=== PATIENT | female | born 1995 | race Caucasian/White ===

== ENCOUNTER 2022-11-01 12:10 | Outpatient (CLI) | payer MEDICAID, SELFPAY ==
[2022-11-01 12:30] VITALS: BP 130/78; PULSE 100; TEMP 36.8; O2SAT 100
[2022-11-01 12:36] VITALS: BMI 32.5
[2022-11-01] MEDS: Lactated Ringers 500 ML 999 ML IV (13:21)
[2022-11-01] MEDS: Acetaminophen 500 MG Tablet 1000 MG PO (13:24)
[2022-11-01 14:02] LABS: Bacteria 0 SEEN /hpf (None Seen); Mucous, Urine 0 SEEN /hpf (<or=2+); Red Blood Cells-Urine 0 SEEN /hpf (0-5)
[2022-11-01 14:13] LABS: Color, Urine Yellow (Yellow); Glucose, Dipstick Normal (Normal); Ketone-Dipstick Negative (Negative); Leukocyte Esterase-Dipstick 100 /ul (Negative); Nitrite-Dipstick Negative (Negative); Occult Blood-Urine Negative /ul (Negative); Protein-Dipstick Negative (Negative); Urine Bilirubin Dipstick Negative (Negative); Urine Clarity Sl. Cloudy (Clear); Urine Urobilinogen 1 mg/dl (Normal)
[2022-11-01 14:24] LABS: Squamous Epithelial Cells - UA 0-5 SEEN /hpf (5-10); White Blood Cells 10-25 SEEN /hpf (0-5)
[2022-11-01 14:40] VITALS: BP 121/74; PULSE 93
--- NOTE | 2022-11-01 17:48 | OB.TRI.HP_ITS ---
HPI - General HPI Narrative QUYNH ALMONTE, is a 26 F @ 35.4 weeks gestation who presents to triage with contractions that started last night. She has headache and concerned because she has a history of preeclampsia and GDM with previous . This has been uneventful. Maternal Data Information CAROLYN Calculator Estimated Delivery Date Method Current WG Current Estimate 12/02/22 Manual 35w 4d PFSH PFSH Home Medications aspirin 81 mg chewable tablet (Aspirin Childrens) 1 tab PO DAILY 11/01/22 [H istory Last Taken 11/01/22 08:00] famotidine 20 mg tablet (Acid-Pep) 20 mg PO DAILY 11/01/22 [History Last Taken 11/01/22 08:00] ferrous sulfate 27 mg iron tablet 27 mg PO DAILY 11/01/22 [History Last Taken 11/01/22 08:00] magnesium 250 mg tablet 250 mg PO DAILY 11/01/22 [History Last Taken 11/01/22 08:00] ondansetron 8 mg disintegrating tablet 8 mg PO Q12H 11/01/22 [History Last Taken Unknown] Allergy/AdvReac Type Severity Reaction Status Date / Time No Known Allergies Allergy Verified 11/01/22 12:37 Social History Smoking Status: Never smoker ROS Eyes Eyes: Denies blurry vision Cardiovascular Cardiovascular: Reports none; Denies chest pain at rest, chest pain with activity or dizziness Respiratory/Chest Respiratory/Chest: Denies cough or dyspnea Gastrointestinal Gastrointestinal: Reports none and other; Denies diarrhea or vomiting Genitourinary Genitourinary: Denies dysuria Musculoskeletal Musculoskeletal: Reports none Integumentary Integumentary: Reports none; Denies rash Neurologic Neurologic: Denies other visual disturbances Psychiatric Psychiatric: Reports none Physical Exam Const alert and no apparent distress General Appearance: cooperative Orientation / Consciousness: awake Exam Limitations: no limitations HEENT normocephalic Eyes General Eye: normal appearance of both eyes Neck full ROM Chest inspection of chest normal Resp normal respiratory effort and normal air movement Effort and Inspection: symmetric chest movement Auscultation: clear to auscultation bilaterally Cardio regular rate GI soft to palpation, non-tender and non-distended Inspection: and other Back/Spine normal ROM Extremity full ROM, normal capillary refill and no calf tenderness Skin no rashes or lesions noted Neuro oriented x3 and CN's II-XII intact bilaterally Psych mental status grossly normal NST FHR Rate Baby A Baseline: 125 Variability:: Moderate Accelerations:: 15 x 15 Decelerations:: None NST Reactive:: Yes FHR Category:: Category I Uterine Activity:: irregular- palpate mild Assessment & Plan (1) 35 weeks gestation of : (2) contractions: (3) Headache: PLAN: Plan Tylenol 1000 mg PO X 1 now Start IV and give 500 cc Bolus LR UA - negative Blood pressure stable CE - closed/thick/high= unchanged after extended monitoring NST reactive D/C home with follow up in office this week Dr. Browning notified
== END 2022-11-01 15:19 | disposition home or self-care (01) ==
LOC: WPOUT 12:27 → WP 12:27
PROVIDERS: Referring Provider Advanced Practice Midwife; Visit Provider Advanced Practice Midwife
DX: O26.893 Other specified pregnancy related conditions, third trimester (principal); R51.9 Headache, unspecified; Z3A.35 35 weeks gestation of pregnancy
CPT/HCPCS: 96360; 59025; 59050; 81001; 99221; J7120; G0378

== ENCOUNTER 2022-11-04 11:40 | Outpatient (CLI) | payer MEDICAID, SELFPAY ==
[2022-11-04] VITALS (7 sets, daily range): BP systolic 124–138; BP diastolic 79–88; PULSE 101–112; TEMP 35.9–37.2; O2SAT 100; BMI 32.1
[2022-11-04 12:35] LABS: ROM Internal Control Test YES-OK TO RESULT pt. (Internal QC); ROM Patient Test Negative (Negative); Record Kit Lot#, ROM+ K1374
--- NOTE | 2022-11-04 12:47 | OB.TRI.NOTE ---
HPI - General HPI Narrative QUYNH ALMONTE, is a 26 F 36 week gestation, who presents with contractions and lower pelvic pressure. She reports having stomach issues/diarrhea the past couple of days. She has positive movement and denies any vaginal bleeding. Maternal Data Information CAROLYN Calculator Estimated Delivery Date Method Current WG Current Estimate 12/02/22 Manual 36w 0d PFSH PFSH Home Medications aspirin 81 mg chewable tablet (Aspirin Childrens) 1 tab PO DAILY 11/01/22 [History Last Taken 11/03/22 08:00 1 TAB] famotidine 20 mg tablet (Acid-Pep) 20 mg PO DAILY 11/01/22 [History Last Taken 11/03/22 08:00 20 mg] ferrous sulfate 27 mg iron tablet 27 mg PO DAILY 11/01/22 [History Last Taken 11/03/22 08:00 65 mg] magnesium 250 mg tablet 250 mg PO DAILY 11/01/22 [History Last Taken 11/03/22 08:00 500 mg] ondansetron 8 mg disintegrating tablet 8 mg PO Q12H 11/01/22 [History Last Taken Unknown] Allergy/AdvReac Type Severity Reaction Status Date / Time No Known Allergies Allergy Verified 11/04/22 12:06 Social History Smoking Status: Never smoker ROS Eyes Eyes: Denies blurry vision Cardiovascular Cardiovascular: Reports none; Denies chest pain at rest, chest pain with activity or dizziness Respiratory/Chest Respiratory/Chest: Denies cough or dyspnea Gastrointestinal Gastrointestinal: Reports none and other; Denies diarrhea or vomiting Genitourinary Genitourinary: Denies dysuria Musculoskeletal Musculoskeletal: Reports none Integumentary Integumentary: Reports none; Denies rash Neurologic Neurologic: Denies dizziness, headache(s) or other visual disturbances Psychiatric Psychiatric: Reports none Physical Exam Const alert and no apparent distress General Appearance: cooperative Orientation / Consciousness: awake Exam Limitations: no limitations HEENT normocephalic Eyes General Eye: normal appearance of both eyes Neck full ROM Chest inspection of chest normal Resp normal respiratory effort and normal air movement Effort and Inspection: symmetric chest movement Auscultation: clear to auscultation bilaterally Cardio regular rate GI soft to palpation, non-tender and non-distended Inspection: and other Back/Spine normal ROM Extremity full ROM, normal capillary refill and no calf tenderness Skin no rashes or lesions noted Neuro oriented x3 and CN's II-XII intact bilaterally Psych mental status grossly normal NST FHR Rate Baby A Baseline: 130 Variability:: Moderate Accelerations:: 15 x 15 Decelerations:: None NST Reactive:: Yes FHR Category:: Category I Uterine Activity:: irritability Assessment & Plan (1) Pelvic pressure in : (2) 36 weeks gestation of : (3) Diarrhea: (4) Dehydration during : (5) UTI (urinary tract infection), affecting care of mother, antepartum: PLAN: Plan Start IV - Give 1000 cc bolus LR and then run at 250 cc/hr CBC, CMP Oral hydration Zofran 4 mg IV PRN for nausea UA- reflects dehydration and possible infection- will send culture Ancef 2 gm IV x 1 now Macrobid 100 mg PO BID x 7 days CE- 2/50/-3 - unchanged after extended monitoring Patient requesting membrane sweep today - reviewed not appropriate until after 38 weeks gestation D/C home with follow up in office this week Dr. Gil involved with plan of care
[2022-11-04] MEDS: Lactated Ringers 1,000 ML 999 ML IV (13:10)
[2022-11-04 13:15] LABS: Bacteria 0 SEEN /hpf (None Seen); Mucous, Urine 0 SEEN /hpf (<or=2+); Red Blood Cells-Urine 0 SEEN /hpf (0-5)
[2022-11-04 13:22] LABS: Color, Urine Yellow (Yellow); Glucose, Dipstick 100 mg/dl (Normal); Ketone-Dipstick 5 mg/dl (Negative); Leukocyte Esterase-Dipstick 500 /ul (Negative); Nitrite-Dipstick Negative (Negative); Occult Blood-Urine 10 /ul (Negative); Protein-Dipstick 15 mg/dl (Negative); Specific Gravity, Urine 1.025 (1.002-1.030); Urine Bilirubin Dipstick Negative (Negative); Urine Clarity Sl. Cloudy (Clear); Urine Urobilinogen Normal (Normal)
[2022-11-04 13:23] LABS: Absolute Lymphocyte Count 1.59 X10^3/uL (0.83-4.51); Basophil# 0.02 X10^3/uL; Basophil% 0.2 % (0-1); Eosinophil# 0.02 X10^3/uL; Eosinophils% 0.2 % (0-5); Hematocrit 33.5 % (37-47); Hemoglobin 10.2 g/dL (12.0-15.0); Lymphocyte # 1.59 X10^3/ul (0.83-4.51); Lymphocyte % 19.1 % (19-41); Mean Corp Hgb Conc 30.4 g/dL (32-36); Mean Corpuscular Hgb 27.8 pg (27.0-32.0); Mean Corpuscular Volume 91.3 fL (81-99); Mean Platelet Vol. 10.6 fl (6.2-12.0); Monocyte# 0.64 X10^3/uL; Monocyte% 7.7 % (0-10); NRBC Flagged by Analyzer 0 % (0-5); Neutrophil # 6.01 X10^3/uL (2.7-7.7); Neutrophil % 72.4 % (47-70); Platelet Count 237 K/mm3 (150-450); RBC Distribution Width CV 14.4 % (11.6-14.6); RBC Distribution Width SD 48.5 fl (35.1-43.9); Red Blood Count 3.67 M/mm3 (4.2-5.4); White Blood Count 8.3 K/mm3 (4.4-11.0)
[2022-11-04 13:31] LABS: Squamous Epithelial Cells - UA 0-5 SEEN /hpf (5-10); White Blood Cells 5-10 SEEN /hpf (0-5)
[2022-11-04 13:43] LABS: ALB/GLOB Ratio 0.6 RATIO (0.9-2.4); AST(SGOT) 17 U/L (15-37); Alanine Aminotransfer ALT/SGPT 20 U/L (13-56); Albumin, Serum 2.4 g/dL (3.2-5.0); Alkaline Phosphatase 142 U/L (45-117); Anion Gap 8 (5-15); BUN 12 mg/dL (7-18); BUN/Creat Ratio 15.4 RATIO (10-20); Chloride 109 mmol/L (98-107); Creatinine, Serum 0.78 mg/dL (0.55-1.02); EST Glomerular Filtration Rate 94 mL/min (>60); Est Glom Filt Rate - Afr Amer 113 mL/min (>60); Estimated Creatinine Clearance 105.35 ml/min; Globulin 4.1 g/dL (2.2-4.2); Glucose 136 mg/dL (74-106); Potassium 3.5 mmol/L (3.5-5.1); Protein, Total 6.5 g/dL (6.4-8.2); Sodium Level 137 mmol/L (136-145)
[2022-11-04] MEDS: Lactated Ringers 1,000 ML 250 ML IV (14:56)
[2022-11-04] MEDS: Cefazolin 2 GM in 0.9% Normal Saline (100mL Bag) 100 ML IV (15:03)
[2022-11-04] MEDS: Ondansetron 4 MG/2 ML Vial IV (16:40)
--- NOTE | 2022-11-04 18:18 | DCINST_ITS ---
Discharge Instructions Follow Up Care Test Results: Test results from this visit will be discussed in further detail at your follow- up appointment, if applicable. Discharge Plan Admission Reason For Visit: R/O LABOR Attending Provider: Laverne Gary Primary Care Provider: Nemo Bernabe Primary Discharge Date/Time: 11/04/22 17:15 Instructions Patient Instructions: OB Triage: Return to Hospital or Notify Physician if you Experience: Discharge Orders/Prescriptions Prescriptions: New nitrofurantoin monohyd/m-cryst [Macrobid] 100 mg capsule 100 mg PO BID Qty: 14 0RF Rx Instructions: Take medication with food to help with GI upset Finish all of medication No Action famotidine [Acid-Pep] 20 mg tablet 20 mg PO DAILY ondansetron 8 mg tablet,disintegrating 8 mg PO Q12H Patient Comments: prn ferrous sulfate 27 mg iron tablet 27 mg PO DAILY Patient Comments: pt states 65 mg aspirin [Aspirin Childrens] 81 mg tablet,chewable 1 tab PO DAILY magnesium 250 mg tablet 250 mg PO DAILY Rx Instructions: pt takes 2 Referrals / Follow Up: Care Physician,No Primary [Primary Care Provider] - Disposition Patient Disposition: Home, Self Care
--- NOTE | 2022-11-05 08:14 | PCM.PN.BLA ---
Progress Note Patient's urine positive for Chlamydia. Patient notified and aware partner needs treatment as well. Rx sent for Azithromycin 1 GM PO x 1 now. Will notify Health Department. Assessment & Plan Assessment/Plan (1) Chlamydia infection affecting : (2) 36 weeks gestation of : PLAN: Plan RX sent for Azithromycin 1 GM PO x 1 now Partner (s) will need notified and treated Patient voices understanding Will need JOSE
== END 2022-11-04 17:15 | disposition home or self-care (01) ==
LOC: WPOUT 11:50 → WP 11:51
PROVIDERS: Referring Provider Advanced Practice Midwife; Visit Provider Advanced Practice Midwife
DX: O98.313 Other infections with a predominantly sexual mode of transmission complicating pregnancy, third trimester (principal); A56.00 Chlamydial infection of lower genitourinary tract, unspecified; O99.283 Endocrine, nutritional and metabolic diseases complicating pregnancy, third trimester; E86.0 Dehydration; R19.7 Diarrhea, unspecified; Z3A.36 36 weeks gestation of pregnancy; R10.2 Pelvic and perineal pain
CPT/HCPCS: 96365; 96361; 96375; 59025; 59050; 80053; 81001; 84112; 85025; 87086; 87088; 87491; 87591; J7120; J2405

== ENCOUNTER 2022-11-12 03:10 | Inpatient (IN) | payer MEDICAID, SELFPAY ==
[2022-11-12] VITALS (52 sets, daily range): BP systolic 87–152; BP diastolic 43–80; PULSE 80–163; RESP 16–18; TEMP 36.4–37.3; O2SAT 82–100; BMI 32.4
[2022-11-12 01:31] LABS: ROM Internal Control Test YES-OK TO RESULT pt. (Internal QC); ROM Patient Test Negative (Negative); Record Kit Lot#, ROM+ K1409
[2022-11-12] MEDS: LACTATED RINGERS 500 ML 999 ML IV ×3 (01:45→05:27)
[2022-11-12] MEDS: Penicillin G Pot 5,000,000 UNITS in 0.9% Normal Saline (100mL MB+) 100 ML 150 UNITS IV (01:54)
[2022-11-12 02:10] LABS: Absolute Neutrophil Count 6.8 X10^3/uL (2.0-7.7); Basophil# 0.03 X10^3/uL; Basophil% 0.3 % (0-1); Eosinophil# 0.07 X10^3/uL; Eosinophils% 0.7 % (0-5); Hematocrit 32.2 % (37-47); Hemoglobin 10.2 g/dL (12.0-15.0); Lymphocyte % 26.3 % (19-41); Mean Corp Hgb Conc 31.7 g/dL (32-36); Mean Corpuscular Hgb 28.6 pg (27.0-32.0); Mean Corpuscular Volume 90.2 fL (81-99); Mean Platelet Vol. 10.9 fl (6.2-12.0); Monocyte# 0.83 X10^3/uL; Monocyte% 7.8 % (0-10); NRBC Flagged by Analyzer 0 % (0-5); Neutrophil # 6.83 X10^3/uL (2.7-7.7); Neutrophil % 64.1 % (47-70); Platelet Count 258 K/mm3 (150-450); RBC Distribution Width CV 15.1 % (11.6-14.6); RBC Distribution Width SD 48.5 fl (35.1-43.9); Red Blood Count 3.57 M/mm3 (4.2-5.4); White Blood Count 10.6 K/mm3 (4.4-11.0)
[2022-11-12] MEDS: Lactated Ringers 1,000 ML 200 ML IV ×2 (02:17→08:52)
[2022-11-12 03:14] LABS: Syphilis Antibodies Non-reactive
[2022-11-12 03:14] LABS: Hepatitis C Antibody Non-Reactive (Nonreactive)
[2022-11-12] MEDS: fentaNYL-bupivacaine (epidural) 100 ML BAG EPIDURAL ×2 (03:55→08:20)
[2022-11-12 04:40] LABS: Amphetamine Urine VISTA NEGATIVE (<1000 ng/mL); Barbiturate Urine VISTA NEGATIVE (< 200 ng/mL); Benzodiazepine Urine VISTA NEGATIVE (< 200 ng/mL); Cocaine Urine VISTA NEGATIVE (< 300 ng/mL); Ecstacy Urine VISTA NEGATIVE (< 500 ng/mL); Methadone Urine VISTA NEGATIVE (< 300 ng/mL); PCP Urine VISTA NEGATIVE (< 25 ng/mL); THC Urine VISTA POSITIVE (< 50 ng/mL); Vista UDS pH Range 6
[2022-11-12] MEDS: Azithromycin 500 MG in Dextrose 5%-Water (250mL Bag) 250 ML 250 MG IV (05:46)
[2022-11-12] MEDS: Ondansetron 4 MG/2 ML Vial IV (05:55)
[2022-11-12] MEDS: proCHLORPERazine 10 MG/2 ML Vial IV (06:35)
[2022-11-12] MEDS: Mag Hydrox/Al Hydrox/Simeth 30 ML UDC PO (06:53)
[2022-11-12] MEDS: Penicillin G 3,000,000 Units 50 ML 100 UNITS IV (06:56)
[2022-11-12] MEDS: Oxytocin 15 Units/NS 250ml 15 UNITS/250 ML IV.SOLN 2 UNITS IV (08:41)
--- NOTE | 2022-11-12 09:52 | PCM.HP.OB ---
HPI - General General Date of Admission: 11/12/22 Date of Service: 11/12/22 Chief Complaint: contractions [facility] Narrative QUYNH ALMONTE, is a 26-year-old female 4 para 2-0-1-2 who presents at 37 weeks gestation complaining contractions. No gross vaginal bleeding or leaking of fluid. She has had good movement. has been complicated to date by nausea and vomiting of and chlamydia. She was treated for her chlamydia recently. She has a history preeclampsia and depression and previous pregnancies. She has a history of gestational diabetes with a previous . She is also had some antepartum anemia. Maternal Data Information CAROLYN Calculator Estimated Delivery Date Method Current WG Current Estimate 12/02/22 Manual 37w 1d Gestational age: 37 03/04 [facility] Medical History (Updated 11/12/22 @ 09:[address] Moni Browning MD) Anxiety Chlamydia infection affecting Depression Gestational diabetes Gestational HTN depression Pre-eclampsia Home Medications aspirin 81 mg chewable tablet (Aspirin Childrens) 1 tab PO DAILY 11/01/22 [History Last Taken 11/03/22 08:00 1 TAB] famotidine 20 mg tablet (Acid-Pep) 20 mg PO DAILY 11/01/22 [History Last Taken 11/03/22 08:00 20 mg] ferrous sulfate 27 mg iron tablet 27 mg PO DAILY 11/01/22 [History Last Taken 11/03/22 08:00 65 mg] magnesium 250 mg tablet 250 mg PO DAILY 11/01/22 [History Last Taken 11/03/22 08:00 500 mg] ondansetron 8 mg disintegrating tablet 8 mg PO Q12H 11/01/22 [History Last Taken Unknown] nitrofurantoin monohydrate/macrocrystals 100 mg capsule (Macrobid) 100 mg PO BID #14 CAPSULES 11/04/22 [Rx Last Taken Unknown] azithromycin 500 mg tablet 500 mg PO DAILY #2 tabs 11/05/22 [Rx Last Taken Unknown] Allergy/AdvReac Type Severity Reaction Status Date / Time No Known Allergies Allergy Verified 11/12/22 00:51 Surgical History (Updated 11/12/22 @ 01:49 by Azalea Brown) History of cholecystectomy [place] teeth removed Social History Smoking Status: Former smoker History Elective abortions Hx Para 2 Spontaneous abortions Hx # Term Pregnancies Ectopic pregnancies Hx # Pregnancies Multiple births # of living children ROS Constitutional Constitutional: Denies fatigue, fever(s) or malaise Eyes Eyes: Denies change in vision ENT HEENT: Denies dizziness or headache(s) Cardiovascular Cardiovascular: Denies chest pain, dyspnea or lightheadedness Respiratory/Chest Respiratory/Chest: Denies cough or dyspnea Gastrointestinal Gastrointestinal: Denies change in bowel habits Genitourinary Genitourinary: Denies burning urination or genital lesions Integumentary Integumentary: Denies rash Neurologic Neurologic: Denies confusion, dizziness, headache(s), numbness or weakness Vital Signs Vital Signs Vital Signs: 11/12/22 02:53 11/12/22 02:53 11/12/22 02:53 Temperature Temperature Source Pulse Rate 89 Blood Pressure 117/71 BP Systolic 117 BP Diastolic 71 Pulse Ox 99 11/12/22 02:53 11/12/22 02:53 11/12/22 03:34 Temperature 98.7 F Temperature Source Temporal Pulse Rate 109 H Blood Pressure BP Systolic BP Diastolic Pulse Ox 11/12/22 03:34 11/12/22 03:39 11/12/22 03:39 Temperature Temperature Source Pulse Rate 107 H Blood Pressure BP Systolic BP Diastolic Pulse Ox 93 100 11/12/22 03:40 11/12/22 03:40 11/12/22 03:41 Temperature Temperature Source Pulse Rate 91 Blood Pressure 152/77 H BP Systolic 152 BP Diastolic 77 Pulse Ox 87 11/12/22 03:41 11/12/22 03:41 11/12/22 03:44 Temperature Temperature Source Pulse Rate 89 101 H Blood Pressure BP Systolic BP Diastolic Pulse Ox 100 11/12/22 03:44 11/12/22 03:47 11/12/22 03:47 Temperature Temperature Source Pulse Rate 90 Blood Pressure 132/80 H BP Systolic 132 BP Diastolic 80 Pulse Ox 100 11/12/22 03:49 11/12/22 03:49 11/12/22 03:52 Temperature Temperature Source Pulse Rate 88 Blood Pressure 100/72 BP Systolic 100 BP Diastolic 72 Pulse Ox 99 11/12/22 03:52 11/12/22 03:54 11/12/22 03:54 Temperature Temperature Source Pulse Rate 105 H 105 H Blood Pressure BP Systolic BP Diastolic Pulse Ox 99 11/12/22 03:58 11/12/22 03:58 11/12/22 03:59 Temperature Temperature Source Pulse Rate 100 105 H Blood Pressure 110/58 L BP Systolic 110 BP Diastolic 58 Pulse Ox 11/12/22 03:59 11/12/22 04:02 11/12/22 04:02 Temperature Temperature Source Pulse Rate 100 Blood Pressure 111/55 L BP Systolic 111 BP Diastolic 55 Pulse Ox 98 11/12/22 04:04 11/12/22 04:04 11/12/22 04:06 Temperature Temperature Source Pulse Rate 104 H Blood Pressure 102/52 L BP Systolic 102 BP Diastolic 52 Pulse Ox 99 11/12/22 04:06 11/12/22 04:09 11/12/22 04:09 Temperature Temperature Source Pulse Rate 97 98 Blood Pressure BP Systolic BP Diastolic Pulse Ox 100 11/12/22 04:11 11/12/22 04:11 11/12/22 04:14 Temperature Temperature Source Pulse Rate 100 96 Blood Pressure 106/59 L BP Systolic 106 BP Diastolic 59 Pulse Ox 11/12/22 04:14 11/12/22 04:17 11/12/22 04:17 Temperature Temperature Source Pulse Rate 96 Blood Pressure 113/60 BP Systolic 113 BP Diastolic 60 Pulse Ox 99 11/12/22 04:17 11/12/22 04:17 11/12/22 04:51 Temperature 98.3 F Temperature Source Temporal Temporal Pulse Rate Blood Pressure BP Systolic BP Diastolic Pulse Ox 11/12/22 04:51 11/12/22 04:52 11/12/22 04:52 Temperature Temperature Source Pulse Rate 110 H Blood Pressure 105/57 L BP Systolic 105 BP Diastolic 57 Pulse Ox 99 11/12/22 04:51 11/12/22 05:16 11/12/22 05:16 Temperature 98.3 F Temperature Source Pulse Rate 84 Blood Pressure 109/57 L BP Systolic 109 BP Diastolic 57 Pulse Ox 11/12/22 01:04 11/12/22 01:05 11/12/22 01:05 Temperature Temperature Source Temporal Pulse Rate 88 Blood Pressure 107/59 L BP Systolic 107 BP Diastolic 59 Pulse Ox 11/12/22 01:04 11/12/22 01:04 11/12/22 05:35 Temperature 98.7 F Temperature Source Pulse Rate 110 H Blood Pressure BP Systolic BP Diastolic Pulse Ox 98 11/12/22 05:35 11/12/22 05:40 11/12/22 05:40 Temperature Temperature Source Pulse Rate 104 H Blood Pressure BP Systolic BP Diastolic Pulse Ox 100 100 11/12/22 05:45 11/12/22 05:45 11/12/22 05:50 Temperature Temperature Source Pulse Rate 104 H 111 H Blood Pressure BP Systolic BP Diastolic Pulse Ox 100 11/12/22 05:50 11/12/22 05:55 11/12/22 05:55 Temperature Temperature Source Pulse Rate 139 H Blood Pressure BP Systolic BP Diastolic Pulse Ox 100 100 11/12/22 06:16 11/12/22 06:17 11/12/22 06:17 Temperature Temperature Source Temporal Pulse Rate 96 Blood Pressure 98/55 L BP Systolic 98 BP Diastolic 55 Pulse Ox 11/12/22 06:16 11/12/22 06:17 11/12/22 06:17 Temperature 97.6 F L Temperature Source Pulse Rate 93 Blood Pressure BP Systolic BP Diastolic Pulse Ox 100 11/12/22 07:24 11/12/22 07:25 11/12/22 07:25 Temperature Temperature Source Pulse Rate 97 Blood Pressure 102/56 L BP Systolic 102 BP Diastolic 56 Pulse Ox 98 11/12/22 08:38 11/12/22 08:38 11/12/22 08:38 Temperature Temperature Source Pulse Rate 100 105 H Blood Pressure 107/54 L BP Systolic 107 BP Diastolic 54 Pulse Ox 11/12/22 08:38 11/12/22 08:43 11/12/22 08:43 Temperature Temperature Source Pulse Rate 90 Blood Pressure BP Systolic BP Diastolic Pulse Ox 98 98 11/12/22 08:48 11/12/22 08:48 11/12/22 09:08 Temperature Temperature Source Pulse Rate 103 H 163 H Blood Pressure BP Systolic BP Diastolic Pulse Ox 98 11/12/22 09:08 11/12/22 09:08 11/12/22 09:08 Temperature Temperature Source Pulse Rate 143 H Blood Pressure BP Systolic BP Diastolic Pulse Ox 83 82 11/12/22 09:24 11/12/22 09:24 Temperature Temperature Source Pulse Rate 96 Blood Pressure 119/70 BP Systolic 119 BP Diastolic 70 Pulse Ox Weight Weight: 95.345 kg Body Mass Index (BMI) 32.4 Physical Exam Const alert and no apparent distress General Appearance: cooperative HEENT normocephalic Resp normal respiratory effort Cardio regular rate GI soft to palpation GI Narrative: gravid, nontender, appropriate for gestational age Extremity no calf tenderness General Extremity: edema Skin no wounds Rashes: No rashes noted Psych activity/motor behavior normal Labs Labs Labs: Blood Type A NEGATIVE Antibody Screen NEGATIVE Hct 32.2 % (37-47) L Hgb 10.2 g/dL (12.0-15.0) L Obstetrics US Syphilis Total Ab Non-reactive Assessment & Plan (1) 37 weeks gestation of : PLAN: 26-year-old female multigravida in spontaneous labor. Estimated weight is less than 4000 g clinically and pelvis clinically adequate to expect vaginal delivery. May have routine pain management medications and measures during labor as desired. Group B strep is negative. Patient tested positive for chlamydia recently and was treated. Test today is still positive, may be false positive due to recent treatment however, will give 1 dose of IV Zithromax to cover this. Expectant management for vaginal delivery (2) Spontaneous onset of labor:
--- NOTE | 2022-11-12 11:04 | EX.PCM.OBRPT ---
Maternal Data Information CAROLYN Calculator Estimated Delivery Date Method Current WG Current Estimate 12/02/22 Manual 37w 1d Final CAROLYN: 12/02/22 Gestational age: 37 1/7 Vaginal Delivery Maternal Presentation Maternal Presentation: Active Labor Operative Information Date of Procedure: 11/12/22 Pre-Operative Diagnosis: labor Post-Operative Diagnosis: same Surgery / Procedure Performed: Forceps Assisted Vaginal Delivery Type of Anesthesia: Epidural Special Medications: none Estimated Blood Loss: 200 Time of Delivery: 10:54 Findings Description of Procedure: A vigorous female infant was delivered SARA over a second-degree perineal laceration. A loose nuchal cord ?1 was easily reduced. The remainder the infant was delivered with maternal pushing and gentle traction only in less than 15 seconds. The Pitocin infusion was initiated for active management of the third stage. The cord was clamped and cut after 1 minute. The infant was attended to by the waiting nursing staff. The placenta was delivered spontaneously and intact. The cervix and vagina were intact. The second-degree perineal laceration was repaired with 2-0 Vicryl suture in a running standard fashion. Sponge and needle counts were correct. A vaginal sweep was completed by me. Presentation: SARA Amniotic Membrane Rupture Type: Artificial Amniotic Fluid Description: Clear Placental Delivery Description: Spontaneous Placenta Disposition: [facility] Cord Vessel Description: 3 Vessels Cord Entanglement: Around neck x 1, loose Nuchal Cord Compression: Without compression (1 minute): 8 (5 minute): 9 Delayed Cord Clamping: Yes Post Vaginal Delivery Medications Given After Delivery: IV Pitocin Episiotomy Description: None Laceration: 2nd degree Complication Complications: None
[2022-11-12] MEDS: Oxytocin 15 Units/NS 250ml 15 UNITS/250 ML IV.SOLN 83 UNITS IV (12:00)
[2022-11-12] MEDS: Acetaminophen 500 MG Tablet 1000 MG PO ×2 (13:47→20:45)
[2022-11-12] MEDS: Ibuprofen 600 MG Tablet PO (19:44)
[2022-11-12] MEDS: 0.9% Saline Lock 10 ML Syringe IV (19:44)
[2022-11-13] VITALS (9 sets, daily range): BP systolic 123–133; BP diastolic 67–86; PULSE 79–102; RESP 16–17; TEMP 36.4–36.8; O2SAT 97–99
[2022-11-13] MEDS: Ibuprofen 600 MG Tablet PO ×4 (01:45→22:31)
[2022-11-13] MEDS: Acetaminophen 500 MG Tablet 1000 MG PO ×3 (02:49→18:20)
[2022-11-13] MEDS: Senna/Docusate Sodium 1 Tablet PO ×2 (04:20→16:22)
--- NOTE | 2022-11-13 07:17 | NURSING ---
bedside report given to Kaylah Verdugo RN who is assuming care of pt at this time
--- NOTE | 2022-11-13 08:00 | PCM.PN.OB ---
Subjective Subjective Patient is doing well. Having some mild uterine cramping that is controlled. She is ambulating and voiding without difficulty. She denies any lightheadedness, dizziness, chest pain, shortness of breath, leg pain, headache. Lochia is normal. She offers no complaints this morning other than the cramping and feels well. She desires to stay another night. Objective Data Objective Data Vital Signs: Vital Signs Temp Pulse Resp BP Pulse Ox O2 Del Method 98.3 F 86 17 130/67 H 99 Room Air 11/13/22 07:58 11/13/22 07:58 11/13/22 07:58 11/13/22 07:58 11/13/22 07:58 11/13/22 07:58 Oxygen Delivery Method Room Air Weight: 210 lb 3.2 oz Body Mass Index (BMI) 32.4 Intake & Output: Intake and Output for Last 24 Hours 11/11/22 11/12/22 11/13/22 23:59 23:59 23:59 Intake Total 3890.76 / 3890.76 Output Total 2059 / 2059 Balance 1830.76 / 1830.76 Lab / Micro Data 11/12/22 01:40 Labs: Laboratory Results - last 24 hr 11/12/22 10:54: Direct Antiglob Test Cancelled, Baby's Blood Type Cancelled 11/12/22 16:10: Screen NEGATIVE, Baby's Blood Type A POSITIVE, Baby's ANGELINA NEGATIVE Micro: Microbiology 11/12/22 00:45 Interface Orders Chlamydia trachomatis (PCR) - Final Chlamydia trachomatis 11/12/22 00:45 Interface Orders Neisseria gonorrhoeae (PCR) - Final Physical Exam Const alert and no apparent distress General Appearance: comfortable HEENT normocephalic Resp normal respiratory effort GI soft to palpation and non-tender GI Narrative: Fundus is firm at umbilicus Extremity no calf tenderness Assessment & Plan (1) Vaginal delivery: PLAN: Patient is day 1 from a spontaneous vaginal delivery. Patient and doing well. Disposition: Anticipate discharge to home tomorrow. (2) History of depression: PLAN: Continue to closely monitor. Mood stable at this time.
[2022-11-13] MEDS: Dibucaine 30 GM Tube 1 APPLIC TOPICAL (10:10)
--- NOTE | 2022-11-13 16:00 | CASEMGMT ---
Social Work Assessment Labor and Delivery Unit Patient Address: [address] [place] [id number] Phone number: [phone] Date of Referral: 11/12/22 Time of Referral:? 1341 Referred By: Anabella Sparrow Date of Intervention: ??11/13/22 Time of Intervention:? 1030 Reason for Referral:? substance use Sw completed chart review and acknowledges social work consult due to maternal substance use. Sw presented to bedside, introduced self to mother of baby (ONEL- Michelle) and explained reason for sw involvement. Sw completed psychosocial assessment, asked MOB to complete the [place] Depression Scale and informed MOB of need for sw to make referral to Children Services due to substance use during . History obtained from: medical records and mother of baby (ONEL)??? Household composition: ONEL states that she has her own housing, where she, baby and two other children reside. MOB states that however she will be staying with her aunt from time to time who will be able to assist her with baby. MOB states that her housing is safe and adequate- no housing concerns at this time. Patient's parent/guardian status:? MOB states that the father of baby is Osmar Youngblood. ONEL reports that they have known each other for ten months and were not, and are not in a relationship. MOB states that her friend, and Osmar's friend are in a relationship and that is how they met. MOB states that she is legally still to her other two children's father, but they are in the process of getting a divorce- it was not allowed to be finalized during ONEL's . MOB states that her involvement with Osmar was consensual, and she denied any concerns of domestic violence or intimate partner violence. ONEL stated that she and Osmar have discussed co-parenting and he is supportive and on board with that. Medical History: ONEL is 3, para 2- now 3. ONEL received routine care with [facility] during her . ONEL delivered baby girl b on 11/12/22 via vaginal delivery. Baby girl, named Sharon Jovel, was born weighing 6lb 6oz and her apgars were 8 and 9 at one and five minutes of life respectfully. Baby will be followed by Dr. Cameron for pediatrics. MOB states that she is breast feeding and it is going well. Educational Status:?ONEL states that she graduated high school and has some college, but did not graduate. MOB states that she retired from the [employer]. 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 MOB states that she has some time off and will be able to work as necessary. Infant Supplies: MOB states that she has everything that she needs for baby including: safe sleep space, car seat, clothes, diapers, wipes and a breast pump. Childcare/Caregiver(s):? MOB will be the primary caregiver to baby. IF MOB were to need assistance FOB will also be able to provide care and maternal aunt. Transportation:?? ONEL states that she has her drivers license and reliable transportation. No transportation barriers at this time. Programs/Agencies Involved: ?MOB is connected to [employer] for insurance. MOB is also connected to [employer]. During MOB was active with [facility], [facility] [employer]. ?? Children Services/Legal Issues:??MOB denies history of involvement with Children Services. Marcos explained to MOB that due to maternal THC use during (MOB tested positive at delivery) that sw is mandated to make a referral to Children Services. MOB expressed understanding. Marcos called [facility] and spoke to hotline screener, Sugey. Sugey indicated that this is a referral that they will not screen in at this time, but will keep on file. ? Behavioral Health Issues: ??Mental Health History:?ONEL has mental health history positive for PPD, anxiety and depression. ONEL stated that her depression seemed to stem around her youngest, however she was able to push through and continued to breastfeed until he was 18 months old. Marcos educated ONEL on signs and symptoms of baby blues and depression. MOB completed [place] Depression Scale, her score was a 3. Sw provided support and education. ?? Substance Use History: MOB states that she used marijuana towards beginning of to help with nausea. MOB urine screen was positive, baby's was negative, meconium still pending. MOB states that her last use was in May. ?? Family History:??MOB states that her mother has a substance use disorder, but she is not close to her. ??? Drug Screens: ?MOB was positive for THC, baby was negative (meconium still pending). Family/Social Stressors:? MOB denied stressors at this time. MOB stated that although she knows her legal will have to go on certificate, FOB is willing to do DNA testing at [facility] [employer] [facility] [employer] [facility]. MOB recognizes that at which time FOB's name can go on certificate. Support Systems: MOB states that her aunt is her biggest support person, along with her soon to be ex- who helps a lot with their two children (Billy Laura, 5 y/o and Davis Laura, 4 y/o). Depression/Shaken Baby/Safe Sleeping: Sw educated and provided literature on baby blues and depression. Sw educated MOB on shaken baby prevention and ABCs of safe sleep. MOB expressed understanding. ASSESSMENT:? MOB admitted for delivering third baby, first baby born in [place] as other baby's were born in other states while MOB was active in ([employer]). MOB with mental health history (anxiety, depression) and history of experiencing Depression. MOB receptive to sw involvement and support. MOB understanding of need for sw to make referral to Children's Services due to substance use during . Safe Plan of Care for infant related to substance use:?MOB states that she does not have intentions of using THC, her primary explanation for use was to help with hyperemesis during . PLAN:? MOB and baby to be discharged when medically ready ?No other services requested or indicated. Roe Hendrickson, RADIATOR CORE TESTER, COMPUTER HARDWARE ENGINEER
[2022-11-14 01:30] VITALS: BP 119/85; PULSE 85; RESP 18; TEMP 36.4; O2SAT 98
[2022-11-14] MEDS: Acetaminophen 500 MG Tablet 1000 MG PO (01:34)
--- NOTE | 2022-11-14 08:36 | PCM.PN.OB ---
Subjective Subjective Denies complaints Objective Data Objective Data Vital Signs: Vital Signs Temp Pulse Resp BP Pulse Ox O2 Del Method 97.5 F L 85 18 119/85 H 98 Room Air 11/14/22 01:30 11/14/22 01:30 11/14/22 01:30 11/14/22 01:30 11/14/22 01:30 11/14/22 01:30 Oxygen Delivery Method Room Air Weight: 210 lb 3.2 oz Body Mass Index (BMI) 32.4 Intake & Output: Intake and Output for Last 24 Hours 11/12/22 11/13/22 11/14/22 23:59 23:59 23:59 Intake Total 3890.76 / 3890.76 Output Total 2059 / 2059 Balance 1830.76 / 1830.76 Lab / Micro Data 11/12/22 01:40 Micro: Microbiology 11/12/22 00:45 Interface Orders Chlamydia trachomatis (PCR) - Final Chlamydia trachomatis 11/12/22 00:45 Interface Orders Neisseria gonorrhoeae (PCR) - Final Physical Exam Const alert, oriented x3 and no apparent distress HEENT normocephalic GI soft to palpation, non-tender and non-distended GI Narrative: fundus firm, mid & below umbilicus Extremity normal to inspection and no calf tenderness Assessment & Plan (1) Vaginal delivery: COMMENT: PPD#2 PLAN: Plan D/c home
--- NOTE | 2022-11-14 08:37 | PCM.DC.SUM ---
Providers Date of Admission: 11/12/22 Primary Care Physician: [facility] Reason For Visit: VAGINAL DELIVERY Diagnosis Discharge Diagnosis (1) Vaginal delivery: Status: Acute Code(s): O80 - Encounter for full-term uncomplicated delivery Plan D/c home Medications at Discharge Home Medications ferrous sulfate 27 mg iron tablet 27 mg PO DAILY 11/01/22 magnesium 250 mg tablet 250 mg PO DAILY 11/01/22 acetaminophen 500 mg tablet 1,000 mg (2 x 500 mg) PO Q6H PRN PRN Pain 1-10 Or Fever #0 tabs 11/14/22 ibuprofen 600 mg tablet 600 mg PO Q6H PRN PRN Pain Score 1-3 #0 tabs 11/14/22 Hospital Course Summary of Care Provided Minutes Spent on Discharge: 10 Physical Exam Const alert, oriented x3 and no apparent distress HEENT normocephalic GI soft to palpation, non-tender and non-distended GI Narrative: fundus firm, mid & below umbilicus Extremity normal to inspection and no calf tenderness Weight / BMI Weight Weight: 210 lb 3.2 oz Body Mass Index (BMI) 32.4 ABG / Lab / Microbiology Data 11/12/22 01:40 Microbiology: Microbiology 11/12/22 00:45 Interface Orders Chlamydia trachomatis (PCR) - Final Chlamydia trachomatis 11/12/22 00:45 Interface Orders Neisseria gonorrhoeae (PCR) - Final D/C Instructions Discharge Diet: No restrictions Discharge Activity: May Shower May resume sexual activity in: 6 weeks Weight Bearing Status: Weight bearing as tolerated Call your doctor if you observe: Fever of 101 or Higher, Coldness, Increased Pain, Change in Color, Inability to urinate, Inability to have a bowel movement, Using more than 1 pad per hour, Shortness of breath, Dizziness, Fainting spells, Chest pain, Increased palpitations (irregular heartbeat), Calf discomfort and Uncontrolled pain Please Follow Up With: Ray Doyle MD When: Follow up in 2 and 6 weeks for visits. Meaningful Use Info Meaningful Use Diagnoses (Choose all that apply): None applicable Discharge Plan Admission Admit Date/Time: 11/12/22 03:10 Primary Reason for Your Visit: Vaginal delivery Attending Provider: Moni Browning Primary Care Provider: Care Physician,No Primary Discharge Orders/Prescriptions Prescriptions: New acetaminophen 500 mg Tablet 1,000 mg PO Q6H PRN PRN (Reason: Pain 1-10 Or Fever) Qty: 0 0RF ibuprofen 600 mg Tablet 600 mg PO Q6H PRN PRN (Reason: Pain Score 1-3) Qty: 0 0RF Continued ferrous sulfate 27 mg iron tablet 27 mg PO DAILY Patient Comments: pt states 65 mg magnesium 250 mg tablet 250 mg PO DAILY Rx Instructions: pt takes 2 Discontinued nitrofurantoin monohyd/m-cryst [Macrobid] 100 mg capsule 100 mg PO BID Qty: 14 0RF Rx Instructions: Take medication with food to help with GI upset Finish all of medication azithromycin 500 mg tablet 500 mg PO DAILY Qty: 2 0RF famotidine [Acid-Pep] 20 mg tablet 20 mg PO DAILY ondansetron 8 mg tablet,disintegrating 8 mg PO Q12H Patient Comments: prn aspirin [Aspirin Childrens] 81 mg tablet,chewable 1 tab PO DAILY Referrals / Follow Up: Care Physician,No Primary [Primary Care Provider] - Disposition Disposition (needs filled in before D/C Order can be placed): Home, Self Care
[2022-11-14 08:50] VITALS: BP 132/87; PULSE 89; RESP 17; TEMP 37.1
[2022-11-14] MEDS: Ibuprofen 600 MG Tablet PO (09:03)
[2022-11-14] MEDS: Senna/Docusate Sodium 1 Tablet PO (09:04)
[2022-11-14 13:25] VITALS: BP 113/70; PULSE 83; RESP 17; TEMP 36.6
== END 2022-11-14 13:55 | disposition home or self-care (01) | DRG 560 ==
LOC: WPOUT 03:16 → WP 03:16
PROVIDERS: Admitting Provider Obstetrics & Gynecology; Visit Provider Obstetrics & Gynecology
DX: O98.32 Other infections with a predominantly sexual mode of transmission complicating childbirth (principal); Z37.0 Single live birth; A56.00 Chlamydial infection of lower genitourinary tract, unspecified; O69.81X0 Labor and delivery complicated by cord around neck, without compression, not applicable or unspecified; O70.1 Second degree perineal laceration during delivery; Z79.82 Long term (current) use of aspirin; Z3A.37 37 weeks gestation of pregnancy; Z86.32 Personal history of gestational diabetes; Z87.891 Personal history of nicotine dependence
CPT/HCPCS: 59025; 59050; 80307; 84112; 85025; 85461; 86780; 86803; 86850; 86880; 86900; 86901; 87491; 87591; 99221; J7120; A4216; G0378; J2405; J2790

== ENCOUNTER 2023-02-03 19:32 | Emergency (ER) | payer MEDICAID, SELFPAY ==
[2023-02-03 19:33] VITALS: O2SAT 98
[2023-02-03 19:35] VITALS: BP 116/73; PULSE 105; RESP 16; TEMP 37.4; O2SAT 98; BMI 31.0
--- NOTE | 2023-02-03 19:43 | EDS_ITS ---
HPI HPI - URI History of Present Illness Chief Complaint: Cough Detail of Chief Complaint: Productive cough for 1 week Informant: patient Onset/Context/Timing Onset: Weeks Context: Sudden Onset Timing: Continuous and Waxes and wanes Quality: Temperature documented 102 ?F Location: Respiratory Current Severity: Mild Maximum Severity: Moderate Worsened by: Not Worsened By Swallowing, Eating Solids or Drinking Liquids Relieved by: Not Relieved By Tylenol or NSAIDs Associated Symptoms Associated Symptoms: Positive for Nasal Congestion, Shortness of Breath and Productive Cough (Green); Negative for Headache, Sinus Pressure, Myalgias, Nausea, Vomiting, Diarrhea, Chest Pain, Nonproductive cough or Hemoptysis Narrative Narrative: Patient is a 27-year-old female who is a former smoker. She presents with respiratory symptoms started 1 week ago. She reports green-colored sputum. She does complain of shortness of breath. She denies headache. She denies nasal congestion. Denies sore throat. Denies change in voice. She denies wheezing. She denies dyspnea on exertion. She denies vomiting or diarrhea. She denies myalgias or arthralgias. Prior similar symptoms: Yes Recent Illness/Hospitalization: No ROS ROS ED Constitutional Constitutional ED: Reports chills, fever(s) and sweats; Denies subjective Eyes Eyes: Denies blurry vision, change in vision or diplopia ENT ENT ED: Reports rhinorrhea; Denies ear pain or sore throat Cardiovascular Cardiovascular: Denies chest pain, orthopnea, palpitations or paroxysmal nocturnal dyspnea Respiratory/Chest Respiratory/Chest: Reports cough, dyspnea and sputum; Denies orthopnea or paroxysmal nocturnal dyspnea Gastrointestinal Gastrointestinal: Denies abdominal pain, diarrhea, nausea or vomiting Genitourinary Genitourinary ED: Denies dysuria, hematuria or urinary frequency Musculoskeletal Musculoskeletal: Denies arthralgias or myalgias Integumentary Denies rash Neurologic Neurologic: Reports headache(s); Denies paresthesias or weakness Endocrine Endocrinology: Denies cold intolerance or heat intolerance Hematologic/Lymphatic Hematologic/Lymphatic: Denies easy bleeding or easy bruising [facility] Medical History 37 weeks gestation of Anxiety Chlamydia infection affecting Depression Gestational diabetes Gestational HTN History of depression depression Pre-eclampsia Spontaneous onset of labor Vaginal delivery Home Medications ferrous sulfate 27 mg iron tablet 27 mg PO DAILY 11/01/22 [History Last Taken 11/03/22 08:00 65 mg] magnesium 250 mg tablet 250 mg PO DAILY 11/01/22 [History Last Taken 11/03/22 08:00 500 mg] acetaminophen 500 mg tablet 1,000 mg (2 x 500 mg) PO Q6H PRN PRN Pain 1-10 Or Fever #0 tabs 11/14/22 [Rx Last Taken Unknown] ibuprofen 600 mg tablet 600 mg PO Q6H PRN PRN Pain Score 1-3 #0 tabs 11/14/22 [Rx Last Taken Unknown] Allergy/AdvReac Type Severity Reaction Status Date / Time No Known Allergies Allergy Verified 02/03/23 19:35 Surgical History History of cholecystectomy [place] teeth removed Social History (Updated 02/03/23 @ 19:[address] Cody Oates MD) household members: children Smoking Status: Former smoker substance use type: does not use EXAM Physical Exam Const Vital Signs: 02/03/23 19:35 02/03/23 19:33 02/03/23 20:13 Temperature 99.3 F H 99.3 F H Temperature Source Temporal Temporal Pulse Rate 105 H 105 H Respiratory Rate 16 16 Respiratory Effort Short of Breath Respiratory Depth Normal Respiratory Pattern Normal Blood Pressure 116/73 116/73 Blood Pressure Mean 87 87 Pulse Ox 98 98 Oxygen Delivery Method Room Air Room Air Positive well nourished and well developed Constitutional Narrative: Patient appears ill but not toxic. General Appearance ED: well developed and NAD; Negative for pallor HEENT Reports moist mucous membranes HEENT Narrative: TMs are normal. normocephalic Face and Sinus: Negative for sinus tenderness Throat: posterior oropharynx normal Eyes PERRL and EOMs intact bilaterally Neck no lymphadenopathy, supple, no meningeal signs and no JVD Resp normal respiratory effort and clear to auscultation bilaterally Cardio S1 normal heart sound, S2 normal heart sound and no murmurs Rate: tachycardic Rhythm: regular rhythm Extremity normal to inspection and full ROM Extremity Narrative: There is no clubbing or cyanosis. Neuro oriented x3 and CN's II-XII intact bilaterally Sensorium / Orientation: alert Psych mental status grossly normal Skin General Skin Exam: Negative for jaundice or pallor Lesions: no lesions Rashes: no rashes MDM MDM MDM Narrative Medical decision making narrative: Suspect viral illness. Will test for influenza since she has had document temperature up to 102 ?F. Since she is not tachypneic hypoxic and there is no abnormal oscillatory findings chest x-ray was not obtained. Lab Data Attestation: I reviewed the patient's lab results. Lab results narrative: Rapid antigen for type a and type B influenza negative and rapid antigen for COVID was negative. Since child has RSV presume mother has RSV. Discharge Plan Triage Chief Complaint: Cough ED Provider: Cody Oates Dx/Rx/DC Orders Clinical Impression: Fever in adult, Sinus tachycardia, Respiratory syncytial virus (RSV) infection Instructions: RSV (Respiratory Syncytial Virus) Prescriptions: No Action ferrous sulfate 27 mg iron tablet 27 mg PO DAILY Patient Comments: pt states 65 mg magnesium 250 mg tablet 250 mg PO DAILY Rx Instructions: pt takes 2 acetaminophen 500 mg Tablet 1,000 mg PO Q6H PRN PRN (Reason: Pain 1-10 Or Fever) Qty: 0 0RF ibuprofen 600 mg Tablet 600 mg PO Q6H PRN PRN (Reason: Pain Score 1-3) Qty: 0 0RF Primary Care Provider: Care Physician,No Primary Referrals: Richie Steiner MD [Med Staff - Tour Sales Representative] - 1 Week if not improving Care Physician,No Primary [Primary Care Provider] - Disposition Disposition: Home, Self Care
[2023-02-03 20:13] VITALS: BP 116/73; PULSE 105; RESP 16; TEMP 37.4; O2SAT 98
[2023-02-03 21:22] VITALS: RESP 16
== END 2023-02-03 21:24 | disposition home or self-care (01) ==
PROVIDERS: Emergency Provider Emergency Medicine; Visit Provider Emergency Medicine
DX: R50.9 Fever, unspecified (principal); B97.4 Respiratory syncytial virus as the cause of diseases classified elsewhere; R00.0 Tachycardia, unspecified; Z87.891 Personal history of nicotine dependence; Z90.49 Acquired absence of other specified parts of digestive tract
CPT/HCPCS: 87428; 99282

== ENCOUNTER 2023-02-20 14:07 | Emergency (ER) | payer MEDICAID, SELFPAY ==
[2023-02-20 14:09] VITALS: BP 111/91; PULSE 106; RESP 18; TEMP 35.8; O2SAT 96
--- NOTE | 2023-02-20 14:21 | RAD_ITS ---
STUDY: X-RAY CHEST REASON FOR EXAM: Female, 27 years old. Cough. TECHNIQUE: Single frontal view of the chest. COMPARISON: May 01, 2014 FINDINGS: Stable mild hyperinflation. There is no demonstrated pleural abnormality. Normal size heart. Normal mediastinum and kevin. Normal visualized pulmonary arteries. Normal visualized aortic arch and descending thoracic aorta. Normal visualized thoracic spine. Normal visualized ribs, clavicles, and shoulders. No abnormality of the visualized soft tissue structures of the upper abdomen. RAD/Chest 1 View (Portable) IMPRESSION: Stable mild hyperinflation with no acute or active cardiopulmonary disease. Electronically Signed: Beto Mendoza MD at 14:39 EST ,
[2023-02-20 17:48] VITALS: O2SAT 96
[2023-02-20 17:49] VITALS: O2SAT 96
[2023-02-20 18:09] VITALS: RESP 14
--- NOTE | 2023-02-20 18:35 | EDS_ITS ---
HPI <KEVIN Gonzalez - Last Filed: 02/20/23 18:39> History of Present Illness Chief Complaint: Cough Narrative Narrative: Patient is 27-year-old female with no significant medical history presents to the emergency department with 4 to 5 days of ongoing cough, intermittent fever and chills. Patient states she has been sick since the end of December. Her entire family tested positive for RSV. She states she still has a cough and has intermittent shortness of breath. Patient states that the fevers are intermittent. She denies any nausea or vomiting. He states that all of her kids are now healthy. PFSH <KEVIN Gonzalez - Last Filed: 02/20/23 18:39> [facility] Medical History 37 weeks gestation of Anxiety Chlamydia infection affecting Depression Gestational diabetes Gestational HTN History of depression depression Pre-eclampsia Spontaneous onset of labor Vaginal delivery Home Medications ferrous sulfate 27 mg iron tablet 27 mg PO DAILY 11/01/22 [History Last Taken 11/03/22 08:00 65 mg] magnesium 250 mg tablet 250 mg PO DAILY 11/01/22 [History Last Taken 11/03/22 08:00 500 mg] acetaminophen 500 mg tablet 1,000 mg (2 x 500 mg) PO Q6H PRN PRN Pain 1-10 Or Fever #0 tabs 11/14/22 [Rx Last Taken Unknown] ibuprofen 600 mg tablet 600 mg PO Q6H PRN PRN Pain Score 1-3 #0 tabs 11/14/22 [Rx Last Taken Unknown] albuterol sulfate 90 mcg/actuation aerosol inhaler (Ventolin HFA) 2 puff inhalation Q4H PRN PRN Wheezing #1 amp 02/20/23 [Rx Last Taken Unknown] Allergy/AdvReac Type Severity Reaction Status Date / Time No Known Allergies Allergy Verified 02/20/23 14:08 Surgical History History of cholecystectomy [place] teeth removed Social History (Updated 02/03/23 @ 19:[address] Cody Oates MD) household members: children Smoking Status: Former smoker substance use type: does not use ROS <KEVIN Gonzalez - Last Filed: 02/20/23 18:39> ROS ED ROS Narrative Constitutional: Negative for fever, chills, weight loss, weakness Eyes: Negative for vision loss, vision change, double vision ENT: Negative for any sore throat, ear pain, congestion Cardiovascular: Negative for any chest pain, tightness, palpitations Respiratory: Negative for any sputum production, hemoptysis, dyspnea, dyspnea on exertion, orthopnea. Positive for cough Gastrointestinal: Negative for any abdominal pain, nausea, vomiting, diarrhea, constipation, blood in stool, blood in vomit : Negative for any urinary frequency, dysuria, retention, blood in urine Muscle skeletal: Negative for any myalgias, arthralgias, neck pain, back pain Neurological: Negative for any headache, syncope, paresthesias, dizziness Skin: Negative for any rashes, lumps, itching, abrasions, lacerations Psychiatric: Negative for any depression, anxiety, stress, suicidal ideation, homicidal ideation Hematologic: Negative for any easy bruising, excessive bruising, easy bleeding Allergies: Negative for any eczema, hives, rash EXAM <KEVIN Gonzalez - Last Filed: 02/20/23 18:39> Physical Exam Narrative Exam Narrative: Vital signs reviewed. HEET: Head normocephalic atraumatic, TMs clear bilaterally. Posterior pharynx is clear, moist mucous membranes. Nares clear bilaterally. Neck: Supple with no lymphadenopathy or tenderness. No signs of meningismus. Cardiac: Regular rate and rhythm no murmurs gallops or rubs, equal peripheral pulses bilaterally. Respiratory: Patient has some expiratory wheezes to the right lower lobe bilaterally. No chest tenderness. Abdomen: Soft, nontender, nondistended. No abdominal bruit or pulsatile masses. No hepatosplenomegaly Extremities: No peripheral edema, no signs of gross trauma or deformity. Active full range of motion of all extremities. Neuro: Cranial nerves II through XII intact, no focal neurological deficits. Skin: Clean dry and intact with no rash, purpura, petechiae, vesicles or pustules. Backs/flank: No CVA tenderness, no midline spinal tenderness, no deformity. Psych: Normal mood and affect. No SI, HI or acute psychosis. Const Vital Signs: 02/20/23 14:09 02/20/23 17:48 02/20/23 17:48 Temperature 96.5 F L Temperature Source Temporal Pulse Rate 106 H Respiratory Rate 18 Respiratory Effort Respiratory Depth Respiratory Pattern Blood Pressure 111/91 H Blood Pressure Mean 97 Pulse Ox 96 96 Oxygen Delivery Method Room Air Room Air Room Air 02/20/23 17:49 Temperature Temperature Source Pulse Rate Respiratory Rate Respiratory Effort Normal Non-Labored Respiratory Depth Normal Respiratory Pattern Normal Blood Pressure Blood Pressure Mean Pulse Ox Oxygen Delivery Method Room Air <Dr. Jose Britton MD - Last Filed: 02/20/23 18:42> Physical Exam Const Vital Signs: 02/20/23 14:09 02/20/23 17:48 02/20/23 17:48 Temperature 96.5 F L Temperature Source Temporal Pulse Rate 106 H Respiratory Rate 18 Respiratory Effort Respiratory Depth Respiratory Pattern Blood Pressure 111/91 H Blood Pressure Mean 97 Pulse Ox 96 96 Oxygen Delivery Method Room Air Room Air Room Air 02/20/23 17:49 Temperature Temperature Source Pulse Rate Respiratory Rate Respiratory Effort Normal Non-Labored Respiratory Depth Normal Respiratory Pattern Normal Blood Pressure Blood Pressure Mean Pulse Ox Oxygen Delivery Method Room Air MDM <KEVIN Gonzalez - Last Filed: 02/20/23 18:39> MDM Radiography Diagnostic Testing: Clinical Impression(s) from Imaging Studies Chest X-Ray 02/20/23 14:21 IMPRESSION: Stable mild hyperinflation with no acute or active cardiopulmonary disease. Electronically Signed: Beto Mendoza MD at 14:39 EST , Treatment and Re-Evaluation :: Patient appears to be in no obvious distress, vital signs are stable. Presenting to the emergency department cough, unremittent fever and chills. Differential diagnosis includes bronchitis, pneumonia, viral-like syndrome. Patient physical examination insistent with a viral-like illness. Patient does have some expiratory wheezing to the right lower lobe. Two-view chest x-ray was negative for any acute process. Patient's COVID-19 was negative. At this time, patient will continue taking Mucinex, it is safe for breast-feeding, she will also be given albuterol inhaler for her coughing fits. Patient structured to follow-up with her PCP, all questions were answered, patient stable for discharge <Dr. Jose Britton MD - Last Filed: 02/20/23 18:42> MDM MDM Narrative Medical decision making narrative: I have personally performed a face to face assessment of the patient and have reviewed the ATIF Note. I performed a substantive portion of the visit including all aspects of the following. My castillo findings include: History is 27-year-old female URI symptoms for a month. Plan to cough. No hemoptysis. No chest pain. No significant shortness of breath. Intermittent wheezing. Exam is [well-appearing 19-year-old female. Vital signs stable afebrile. Pulse ox 96% room air no hypoxia. H EENT exam unremarkable. Neck nontender. Lungs few scattered wheezes. No rales or rhonchi. Equal symmetrical. Heart regular rate and rhythm rate about 100 no murmur. Chest were nontender. Abdomen soft nontender. Moving all 4 extremities. Calves are nontender no edema no cords. Neurologic exam normal.] Medical Decision Making [COVID-negative. Chest x-ray negative.] Other additions or changes: [None] History & Record Review Discussion w/independent historian: Patient Additional record(s) reviewed:: Prior inpatient record, Prior outpatient record, Prior ED visit and Prior labs Radiography Chest X-Ray - ED: 1 View, Read by ED Physician, Read by Radiologist, Normal, Heart, Lungs, Mediastinum, Bony Structures and No Acute Disease Diagnostic Testing: Clinical Impression(s) from Imaging Studies Chest X-Ray 02/20/23 14:21 IMPRESSION: Stable mild hyperinflation with no acute or active cardiopulmonary disease. Electronically Signed: Beto Mendoza MD at 14:39 EST , Discharge Plan Triage Chief Complaint: Cough ED Midlevel Provider: Mihai Murray ED Provider: Jose Britton Dx/Rx/DC Orders Clinical Impression: Cough, Viral syndrome Instructions: ED URI, Viral, No Abx (Adult) Prescriptions: New albuterol sulfate [Ventolin HFA] 90 mcg/actuation HFA aerosol inhaler 2 puff inhalation Q4H PRN PRN (Reason: Wheezing) Qty: 1 0RF No Action ferrous sulfate 27 mg iron tablet 27 mg PO DAILY Patient Comments: pt states 65 mg magnesium 250 mg tablet 250 mg PO DAILY Rx Instructions: pt takes 2 acetaminophen 500 mg Tablet 1,000 mg PO Q6H PRN PRN (Reason: Pain 1-10 Or Fever) Qty: 0 0RF ibuprofen 600 mg Tablet 600 mg PO Q6H PRN PRN (Reason: Pain Score 1-3) Qty: 0 0RF Primary Care Provider: Care Physician,No Primary Referrals: Care Physician,No Primary [Primary Care Provider] - Activity Restrictions/Additional Instructions: Continue taking the Mucinex. Use the albuterol inhaler for the coughing and wheezing Disposition Disposition: Home, Self Care
[2023-02-20 18:42] VITALS: PULSE 96; RESP 15; O2SAT 97
== END 2023-02-20 18:43 | disposition home or self-care (01) ==
PROVIDERS: Emergency Provider Emergency Medicine; Visit Provider Emergency Medicine
DX: B34.9 Viral infection, unspecified (principal); R05.9 Cough, unspecified; Z87.891 Personal history of nicotine dependence; Z90.49 Acquired absence of other specified parts of digestive tract
CPT/HCPCS: 71045; 87811; 94760; 99282